=== PATIENT | male | born 1960 | race Caucasian/White ===

== ENCOUNTER 2017-06-12 10:11 | Emergency (ER) | payer BC, OTHER ==
[2017-06-12] MEDS ORDERED: ALBUTEROL/IPRATROPIUM 1 VIAL SOL INH ONE (10:33)
[2017-06-12] MEDS ORDERED: ACETAMINOPHEN 325 MG PO ONE (10:33)
[2017-06-12] MEDS ORDERED: ALBUTEROL/IPRATROPIUM 1 VIAL SOL ONE (10:36)
[2017-06-12] MEDS ORDERED: SODIUM CHLORIDE 0.9% 1000ML 1,000 ML IV SCH (10:45)
[2017-06-12 10:55] LABS: HEMATOCRIT 48 % (39-53); MEAN CORPUSCULAR HGB CONC 32.3 gm/dl (32.0-36.0); MEAN CORPUSCULAR VOLUME 89 fL (80-100)
[2017-06-12] MEDS ORDERED: ASPIRIN 325 MG TAB PO ONE (10:55)
[2017-06-12] MEDS ORDERED: ASPIRIN 81 MG CHEWABLE CTB ONE (10:57)
[2017-06-12 11:03] LABS: ALBUMIN 3.7 gm/dl (3.4-5.0); ALKALINE PHOSPHATASE 72 IU/L (46-116); ALT 53 IU/L (14-63); AST 25 IU/L (15-37); BILIRUBIN,TOTAL 0.8 mg/dl (0.2-1.0); BLOOD UREA NITROGEN 10 mg/dl (7-18); CREATININE 1.25 mg/dl (0.80-1.30); GLOM FILT RATE 59 mL/min (>60); GLUCOSE 138 mg/dl (74-106); POTASSIUM 4.4 mMol/L (3.5-5.1); SODIUM 139 mMol/L (136-145)
[2017-06-12 11:06] LABS: BASOPHILS % (MANUAL) 0 % (0-3); EOSINOPHILS % (MANUAL) 0 % (0-9); LYMPHOCYTES % (MANUAL) 2 % (10-50)
[2017-06-12 11:08] LABS: CALCIUM 8.8 mg/dl (8.5-10.1); INFLUENZA B NEGATIVE (NEGATIVE)
[2017-06-12] MEDS ORDERED: CLINDAMYCIN 150 MG/ML 600 MG in SODIUM CHLORIDE 0.9% 100 ML 100 ML IV ONE (11:14)
[2017-06-12] MEDS ORDERED: CEFTRIAXONE 1 GM PDS 1 GM in SODIUM CHLORIDE 0.9% 50 ML 50 ML IV ONE (11:14)
[2017-06-12] MEDS ORDERED: CEFTRIAXONE 1 GM PDS ONE (11:17)
[2017-06-12] MEDS ORDERED: CLINDAMYCIN 150 MG/ML SOL ONE (12:04)
[2017-06-12 14:29] VITALS: BP 144/82; PULSE 129; RESP 20; TEMP 100.1; O2SAT 96
== END 2017-06-12 13:15 | disposition home or self-care (01) | DRG 179 ==
LOC: ED 10:11
DX: J69.0 Pneumonitis due to inhalation of food and vomit (principal)
CPT/HCPCS: 71045; 80053; 84484; 85007; 85027; 87040; 87804; 93005; 99285; J0696; J3490

== ENCOUNTER → 2017-08-20 | Day surgery (SDC) | payer OTHER ==
[~2017-08-20] MED LIST: FENTANYL 100MCG/2ML SOL ONE; PROPOFOL 10 MG/ML EMU IV ONE; PROPOFOL 500 MG/50 ML EMU IV ONE
[2017-08-20 12:37] VITALS: O2SAT 94
[2017-08-20 12:51] VITALS: BP 125/77; PULSE 65; RESP 16; TEMP 97.1
== END | disposition home or self-care (01) | DRG 951 ==
LOC: SURG 09:28
PROVIDERS: ATTEND Internal Medicine Gastroenterology
DX: Z12.11 Encounter for screening for malignant neoplasm of colon (principal); K57.32 Diverticulitis of large intestine without perforation or abscess without bleeding; K57.92 Diverticulitis of intestine, part unspecified, without perforation or abscess without bleeding; Q39.9 Congenital malformation of esophagus, unspecified; K21.9 Gastro-esophageal reflux disease without esophagitis; L53.8 Other specified erythematous conditions; K44.9 Diaphragmatic hernia without obstruction or gangrene; Z80.0 Family history of malignant neoplasm of digestive organs; K63.5 Polyp of colon; K29.50 Unspecified chronic gastritis without bleeding; I51.89 Other ill-defined heart diseases
CPT/HCPCS: 99001; J2001; J3010; J2704